=== PATIENT | male | born 1975 | race Caucasian/White ===

== ENCOUNTER 2018-08-03 10:40 | Emergency (ER) | payer BC ==
[~2018-08-03] VITALS: Ht 152.4 cm; Wt 79.4 kg
--- NOTE | 2018-08-03 10:55 | NUR ---
Pt seen,examined by .
[2018-08-03] MEDS ORDERED: KETOROLAC TROMETHAMINE 30 MG INJ IVP ONE (11:00)
[2018-08-03] MEDS ORDERED: KETOROLAC TROMETHAMINE 30 MG INJ ONE (11:08)
[2018-08-03 11:12] LABS: BASOPHILS # (AUTO) 0.1 K/uL (0.0-8.0); BASOPHILS % (AUTO) 0.5 % (0.0-2.0); EOSINOPHILS # (AUTO) 0.2 K/uL (0.0-0.7); HEMATOCRIT 45.1 % (36.7-47.1); HEMOGLOBIN 15.6 g/dL (12.5-16.3); LYMPHOCYTES % (AUTO) 12.1 % (20.5-51.5); MEAN CORPUSCULAR HEMOGLOBIN 32.5 uug (23.8-33.4); MEAN CORPUSCULAR HGB CONC 35 g/dL (32.5-36.3); MEAN CORPUSCULAR VOLUME 94.1 fL (73.0-96.2); MONOCYTES # (AUTO) 1.4 K/uL (2.0-10.0); MONOCYTES % (AUTO) 8.4 % (0.0-11.0); NEUTROPHILS # (AUTO) 12.8 K/uL (1.8-8.9); PLATELET COUNT (AUTO) 210 K/uL (152-348); RED BLOOD CELL COUNT(AUTO) 4.79 MIL/uL (4.06-5.63); WHITE BLOOD COUNT (AUTO) 16.4 K/uL (3.6-10.2)
--- NOTE | 2018-08-03 11:12 | NUR ---
Pt signed consent for CT IV contrast, placed in the chart.
[2018-08-03 11:21] LABS: CREATININE 0.9 mg/dL (0.6-1.3); POTASSIUM 3.6 mmol/L (3.5-5.1)
[2018-08-03 11:27] LABS: BILIRUBIN,DIRECT 0.2 mg/dL (0.0-0.2); BILIRUBIN,TOTAL 1.3 mg/dL (0.2-1.0); TOTAL PROTEIN, SERUM 8.3 g/dL (6.4-8.2)
[2018-08-03] MEDS ORDERED: IOHEXOL 300MG/ML 100 ML INFUS..BTL ONE (11:36)
[2018-08-03] MEDS ORDERED: IV NORMAL SALINE 250 ML IV ONE (11:36)
[2018-08-03] MEDS ORDERED: LIDOCAINE HCL 1% 20 ML VIAL ONE (11:36)
[2018-08-03] MEDS ORDERED: SWABABLE VALVE TRANSFER SET EA MC ONE (11:36)
--- NOTE | 2018-08-03 11:42 | NUR ---
Pt transferred to CT scan via wheelchair.
[2018-08-03 11:47] LABS: *MONOTEST NEGATIVE (NEGATIVE)
[2018-08-03] MEDS ORDERED: HYDROMORPHONE 1 MG/1 ML DISP.SYRIN IV ONE (12:15)
[2018-08-03] MEDS ORDERED: HYDROMORPHONE 2 MG/1 ML DISP.SYRIN ONE (12:15)
--- NOTE | 2018-08-03 12:15 | NUR ---
Pt is back from CT scan.C/o neck pain.Medicated with Dilaudid 1mg IV per MD order.Will continue to monitor.
[2018-08-03] MEDS ORDERED: DEXAMETHASONE SOD PHOSPHATE 4 MG INJ IV ONE (13:00)
[2018-08-03] MEDS ORDERED: DEXAMETHASONE SOD PHOSPHATE 10 MG INJ ONE (13:07)
--- NOTE | 2018-08-03 13:11 | NUR ---
Patient discharged to home in stable conditon. Written and verbal after care instructions given. Patient verbalizes understanding of instructions.
--- NOTE | 2018-08-03 13:11 | NUR ---
IV removed. Catheter intact and site benign. Pressure and 4x4 gauze applied to site. No bleeding noted.
[2018-08-03 13:12] VITALS: BP 122/65
== END 2018-08-03 13:13 | disposition home or self-care (01) ==
LOC: ER 10:40
DX: R59.1 Generalized enlarged lymph nodes (principal); B34.9 Viral infection, unspecified; F17.200 Nicotine dependence, unspecified, uncomplicated
CPT/HCPCS: 36415; 70450; 70460; 70491; 85025; 86308; 86403; 86762; 87070; A4663; J1100; J1170; J1885; J3490; J7050; Q9967

== ENCOUNTER 2018-08-05 14:30 | Emergency (ER) | payer BC ==
[~2018-08-05] VITALS: Ht 177.8 cm; Wt 79.4 kg
--- NOTE | 2018-08-05 14:50 | NUR ---
at bedside to see and examine patient.
--- NOTE | 2018-08-05 15:08 | NUR ---
DCD isntructions and prescription given to pt. pt. left room [id number]. VSS.
== END 2018-08-05 15:21 | disposition home or self-care (01) ==
LOC: ER 14:32
DX: K11.20 Sialoadenitis, unspecified (principal); B97.89 Other viral agents as the cause of diseases classified elsewhere; L53.9 Erythematous condition, unspecified; F17.200 Nicotine dependence, unspecified, uncomplicated
CPT/HCPCS: 99283; A4663